=== PATIENT | male | born 1945 | race Caucasian/White ===

== ENCOUNTER 2024-12-24 09:14 | Inpatient (IN) | payer OTHER, SELFPAY ==
[2024-12-24] VITALS (15 sets, daily range): BP systolic 108–149; BP diastolic 46–85; BMI 28.0
--- NOTE | 2024-12-24 09:05 | PTCARENOTE ---
Patient arrived by ambulance from [facility], without any complaints of chest pain or sob. Placed on telemetry. Oriented to the room and plan of care, NPO, call norman in reach. Awaiting admission orders.
--- NOTE | 2024-12-24 09:26 | CON.CAR ---
Addendum entered and electronically signed by Pravin Proctor MD 12/24/24 12:44:
I saw and examined the patient.
The CAR CLEANER or PA's note was reviewed and I agree with the note.
Comment: General: Well developed, well nourished in NAD.
Neck: Supple, no JVD, HJR, carotids +2 B/L, no bruits bilaterally.
Heart: Non displaced PMI, RRR, no murmurs, No S3, S4, no rubs.
Lungs: Clear to auscultation bilaterally, no wheeze, rhonchi, rubs bilaterally,
normal expiratory phase.
Extremities: No clubbing, cyanosis or edema bilaterally.
Neuro: Grossly nonfocal, awake, alert and oriented x3.
Ivan has a history of coronary disease status post stent of RCA in 2005 in the setting of an [place], cardiomyopathy ejection fraction of 30%, hypertension, A-fib, hyperlipidemia, chronic Eliquis, PMR, temporal arteritis, left bundle branch block. He
was admitted with chest pain to [facility] and has been transferred to [facility] for catheterization. He denies chest pain or short of breath at the present time.
Will plan on catheterization with Dr. Lara. Remainder treatment will depend on the results of catheterization. Eventually resume Eliquis.
Original Note:
Consultation
Consultation Request
Date/Time Consultation Requested: 12/24/2024
Date/Time Consultation Performed: 12/24/2024
Requesting Provider: Dr. Melo
Performing Provider: Dr. Proctor
Reason for Consultation: Transfer from [facility] for acute HF and elevated troponin
Medical History
-
History of Present Illness:
Patient went to [facility] ER on 12/21/2024 with chest pain and was admitted with NSTEMI and is now transferred to [facility] for cardiac cath today. Patient follows with Dr. Jacobo of [facility] and was last seen in their office 02/09/2024. Patient has
history of CAD with IWMI and RCA PCI in 2005 that was performed here at [facility]. [facility] and previously had a mechanical design engineer facilities who was helping to manage PMR and temporal arteritis. He was later diagnosed with macular
degeneration and was getting injections and when his insurance was no longer excepted at [facility] he briefly had health care through the [facility] system. It sounds like he was seen at [facility] 04/2024 for a TIA and echo showed EF down to 30%
which was a new reduction compared to echo from 2017 when EF was 50%. Patient then went to [facility] ER on Tuesday morning with chest pain and troponin was initially elevated at 153 and patient was admitted with suspected NSTEMI. Patient asked
to be transferred to [facility] instead of [facility] in [place] and so patient arrived at our hospital this morning with plans for cardiac cath. Patient denies any chest pain. I was able to obtain records from his primary
computer network specialist and also from [facility] admission, his EF was down to 15 to 20% by their echo on Tuesday. Patient was started on Plavix and his aspirin was continued. His outpatient dose of Toprol-XL was increased to 25 mg twice daily. His
outpatient dose of lisinopril 2.5 mg daily was continued. It looks like he was also started on Imdur ER 30 mg daily and Jardiance 10 mg daily. His outpatient dose of Eliquis was placed on hold in anticipation of a cardiac cath.
PMH:
CAD s/p Taxus UDAY to the RCA in the setting of IWMI 2005
CM, possibly ischemic, EF 30% by echo 04/2024
HTN
Hyperlipidemia
Paroxysmal A-fib
Chronic Eliquis OAC
PMR
h/o Temporal arteritis
Chronic LBBB
Past Medical History
Past Medical History: Other (In HPI)
Past Surgical History: Cardiac (RCA PCI in 2005)
Social History
Tobacco: Smoker
Alcohol: Occasional
Drug: None
Personal:
Family History
Family History: CAD (No FH of CAD)
Allergies / Home Medications
Allergy/AdvReac Type Severity Reaction Status Date / Time
NKA - No Known Allergies Allergy Uncoded 08/11/07 09:57
Review of Systems
-
History Source: Patient
All other systems: Negative unless noted
Physical Exam
Vital Signs
BP 142/80, HR 52, pulse ox 98% on room air, weight 212 lbs
Lab Results
CBC 12/24/2024: Hgb 12.9, WBC 6.5, PLT 224,000
CMP 12/24/2024: Sodium 139, potassium 4.4, BUN 19, creatinine 0.7, magnesium 2.0, AST 80, ALT 53, alk phos 36, troponin 11.7
Impression / Plan
-
PCP Dr. Matias Garsia
Cardiology: Dr. Ivan Jacobo
Neurology: [facility]
Rheumatology: [facility]
Also [facility]
Impression:
Transferred to [facility] for cardiac cath with worsened EF and elevated troponin on 12/24/2024
Admitted to [facility] for chest pain, elevated troponin and acute HF 12/21/2024
NSTEMI initial troponin T at [facility] was 153 on 12/21/2024
CAD s/p Taxus UDAY to the RCA in the setting of IWMI 2005
CM, possibly ischemic, EF 30% by echo 04/2024 and 15% by echo 12/21/2024
HTN
Hyperlipidemia
Paroxysmal A-fib
Chronic Eliquis OAC
PMR
h/o Temporal arteritis
Chronic LBBB
Echo 01/26/2017: EF 50%, LBBB, normal RV size and function
Echo 04/2024: No report available, but apparently EF 30%
Echo 12/21/2024: EF 15 to 20%, severe global hypokinesis, normal RV size and function
Plan:
-Patient went to [facility] ER on 12/21/2024 with chest pain and was admitted with NSTEMI and is now transferred to [facility] for cardiac cath today. Patient follows with Dr. Jacobo of [facility] and was last seen in their office 02/09/2024. Patient has
history of CAD with IWMI and RCA PCI in 2005 that was performed here at [facility]. [facility] and previously had a mechanical design engineer facilities who was helping to manage PMR and temporal arteritis. He was later diagnosed with macular
degeneration and was getting injections and when his insurance was no longer excepted at [facility] he briefly had health care through the [facility] system. It sounds like he was seen at [facility] 04/2024 for a TIA and echo showed EF down to 30%
which was a new reduction compared to echo from 2017 when EF was 50%. Patient then went to [facility] ER on Tuesday morning with chest pain and troponin was initially elevated at 153 and patient was admitted with suspected NSTEMI. Patient asked
to be transferred to [facility] instead of [facility] in [place] and so patient arrived at our hospital this morning with plans for cardiac cath. Patient denies any chest pain. I was able to obtain records from his primary computer network specialist and also from
[facility] admission, his EF was down to 15 to 20% by their echo on Tuesday. Patient was started on Plavix and his aspirin was continued. His outpatient dose of Toprol-XL was increased to 25 mg twice daily. His outpatient dose of lisinopril
2.5 mg daily was continued. It looks like he was also started on Imdur ER 30 mg daily and Jardiance 10 mg daily. His outpatient dose of Eliquis was placed on hold in anticipation of a cardiac cath.
-ECG performed at [facility] was reviewed by me and looks like SR with LBBB
-Patient was initially managed for NSTEMI at [facility] and is now transferred to [facility] for cardiac cath. Troponin is trending down on repeat labs performed at our hospital today. No chest pain.
-Eliquis has been on hold in anticipation of cath
-Patient was started on aspirin and Plavix at [facility]
-Reviewed with patient, daughter and son-in-law in the room possible outcomes of cardiac cath including no changes, need for PCI or need for evaluation for CABG.
-LDL 63 on my review of labs from [facility] on 12/21/2024 and they had already increase his outpatient dose of atorvastatin to 80 mg daily
-Outpatient dose of Toprol-XL was increased to 25 mg BID at [facility]
-Outpatient dose of lisinopril 2.5 mg daily was continued
-New to Imdur ER 30 mg daily from [facility]
-No evidence of acute HF and there is no indication the patient was actively being diuresed prior to transfer. I see no orders for diuretics.
-GDMT as noted above plus Jardiance 10 mg daily which will be changed to Farxiga 10 mg daily for formulary changes while in [facility] and can be changed back to Jardiance upon discharge
-Patient was diagnosed with paroxysmal A-fib in the setting of TIA treated at [facility] 04/2024 and Eliquis 5 mg BID should be restarted following cath
--- NOTE | 2024-12-24 09:49 | HPS.HSE ---
Family Physician
-
Family Physician: Matias Garsia
Chief Complaint
-
Chest pain
History of Present Illness
Patient is 79 years old male with history of hypertension, hyperlipidemia, paroxysmal A-fib, pulmonology rheumatica, temporal arteritis, CHF, chronic LBBB, CAD, presented to [facility] with chest pain and found to have elevated troponin
concerning for NSTEMI. Patient requested to be transferred to our hospital and he is currently in IVU for possible cardiac catheterization for further evaluation. Patient currently denies any chest pain or shortness of breath at rest. On review
of records his EF was noted to be down to around 15 to 20% from higher levels prior to cardiac evaluation and he was noted to have elevated troponin with a peak at 153. We repeated troponin here at this time and it is 11. His outpatient Eliquis
has been on hold. Cardiology evaluation ongoing for further ischemic cardiac testing. He was referred to hospitalist for further evaluation.
Medical History
Past Medical History
Past Medical History: Reports Other (CAD s/p Taxus UDAY to the RCA in the setting of IWMI 2006 CM, possibly ischemic, EF 30% by echo 04/2024 HTN Hyperlipidemia Paroxysmal A-fib Chronic Eliquis OAC PMR h/o Temporal arteritis Chronic LBBB, probable BPH)
Past Surgical History: Reports Other (PCI stents in the past)
Social History
Tobacco: Smoker
Alcohol: Occasional
Drug: None
Family History
Family History: CAD
Allergies / Home Medications
Allergies reflects when Allergies were last updated in [facility].
Home Medications with original date entered in [facility]
Allergy/Medication List:
Allergies
Allergy/AdvReac Type Severity Reaction Status Date / Time
NKA - No Known Allergies Allergy Uncoded 08/11/07 09:57
Home Medications
apixaban 5 mg tablet (Eliquis) 5 mg PO BID 12/24/24
aspirin 81 mg tablet,delayed release (Ecotrin Low Strength) 81 mg PO DAILY 12/24/24
atorvastatin 40 mg tablet 40 mg PO HS 12/24/24
brimonidine 0.2 % eye drops 1 drp BOTH EYES DAILY 12/24/24
latanoprost 0.005 % eye drops 1 drp BOTH EYES HS 12/24/24
lisinopril 2.5 mg tablet 2.5 mg PO DAILY 12/24/24
metoprolol succinate 25 mg tablet,extended release 24 hr 25 mg PO DAILY 12/24/24
tamsulosin 0.4 mg capsule 0.4 mg PO HS 12/24/24
Review of Systems
-
A 12 point ROS was completed and negative except as noted: Yes
Physical Exam
Vital Signs
Blood pressure 124/71, heart rate 68, respiratory rate 18, temperature 97.9 farads, O2 sat 95% on room air
Physical exam:
General: Acutely ill
HEENT: Normocephalic, Atraumatic and Moist Mucous Membranes
Respiratory: Clear to Auscultation; Negative Wheezes, Rales or Rhonchi
Cardiac: Regular Rhythm and S1/S2
GI: Soft, Nontender and Nondistended
Musculoskeletal: No Clubbing, No Cyanosis and No Edema
Neuro: Awake, Alert and Oriented, no neurological deficit
Psych: Calm
Physical Exam
General: Other
Data Reviewed
-
Lab Data: Labs Reviewed by me
Old Records: Reviewed
Impression/Plan
-
IMPRESSION:
Patient is 79 years old with multiple comorbidities transferred to the hospital from [facility] for further cardiac ischemic evaluation.
PLAN:
NSTEMI:
Continue anti-ischemic regimen with antiplatelets, beta-blockers, nitrates, and statins.
Cardiology consulted
Continue cardiac monitoring
Cardiac enzymes trended
Plan for cardiac catheterization today
Chronic HFrEF:
Appears euvolemic on exam
In terms of GDMT he is on beta-shruthi, JESSIE inhibitor, and SGLT-2 inhibitors
Might consider rest of GDMT later down the road
Monitor volume status Daily weights and ins and outs
Paroxysmal A-fib:
On rate control, metoprolol succinate 25 mg twice a day
On anticoagulation, Eliquis 5 mg twice a day- currently on hold due to upcoming procedure
Continue cardiac monitoring
CAD:
History of stent in RCA in 2005
TIA, presumably embolic:
Continue statin and resume anticoagulation
Hypertension:
Continue antihypertensive
Hyperlipidemia:
Continue statin
History of temporal arteritis and PMR:
Patient tells me he has been taper off completely of steroids as outpatient
BPH:
Continue Flomax
Macular degeneration:
Continue eyedrop
DVT prophylaxis:
SCDs
CODE STATUS:
Full code
Time spent 75 minutes
[2024-12-24 10:48] LABS: Hematocrit 39.4 % (39.0-52.0); Hemoglobin 12.9 g/dL (13.0-18.0); Mean Corp Hgb Conc. 32.7 g/dL (33.0-37.0); Mean Corpuscular Volume 82.8 fL (80.0-94.0); Platelet Count 224 10^3/uL (130-400); Red Cell Dist. Width 14.3 % (11.5-14.5)
[2024-12-24 11:29] LABS: ALT (SGPT) 53 U/L (0-50); AST (SGOT) 80 U/L (17-59); Albumin 4.3 g/dl (3.5-5.0); Alkaline Phosphatase 36 U/L (38-126); Blood Urea Nitrogen 19 mg/dl (9-20); Calcium 9.2 mg/dl (8.4-10.2); Carbon Dioxide 27 mmol/L (22-30); Chloride 108 mmol/L (98-107); Estimated Creatinine Clearance 100 ml/min; Glucose 95 mg/dl (70-99); Magnesium 2.0 mg/dl (1.6-2.3); Potassium 4.4 mmol/L (3.5-5.1); Sodium 139 mmol/L (135-145); Total Protein 6.4 g/dl (6.3-8.2); eGFR > 60.00
[2024-12-24 11:38] LABS: Troponin I 11.700 ng/ml
--- NOTE | 2024-12-24 14:22 | CM ---
Chart reviewed. Patient waiting to go for a heart cath. Patient is independent of ADLS, lives alone in a 2 [address], 1 ALEJANDRA, 0 DME. Plan is for the patient to return home. CM to follow
[2024-12-24] MEDS: LOW STRENGTH ASPIRIN 81 MG PO (15:17)
--- NOTE | 2024-12-24 15:19 | PTCARENOTE ---
Patient remains pain free, given a baby asa and taken to the laboratory veterinarian. His daughter is waiting in his room.
[2024-12-24 16:01] LABS: ACT-LR - POC 208 Seconds (116-155)
--- NOTE | 2024-12-24 16:47 | ITS.CL.ANGIO ---
Geotechnical Intern - Angioplasty
Angioplasty
Procedure Report:
LEFT HEART CATHETERIZATION
Date of Procedure: April 25, 2024
Procedures performed:
1: Coronary angiography
2: Left ventricular hemodynamic assessment
3: Percutaneous coronary invention of the right coronary artery with placement of a 4.0 x 26 mm [place] drug-eluting stent
Primary Care Provider: Dr. Elvia Valenzuela
Primary Acid Tank Cleaner: Dr. Ivan Jacobo
INDICATION: The patient is a 79-year-old man with a past medical history significant for coronary artery disease status post inferior ID treated with RCA stenting in 2005, recent multiple small foci throughout the bilateral cerebral hemispheres by
MRI in February 2024 felt to be highly suspicious for embolic strokes and was started on Eliquis despite no clear evidence of atrial fibrillation but in the context of newly recognized depressed ejection fraction of 25 to 30% around that time,
history of giant cell arteritis, hypertension, and hyperlipidemia. He presented to [facility] after developing chest tightness and symptoms last evening into Tuesday morning which were reminiscent of his index presentation with an
inferior ID in 2005. Troponins were low-level positive and he was admitted to [facility]. Repeat echo showed severe LV systolic dysfunction in the setting of a wide left bundle branch block. He has been chest pain-free since Tuesday. He
is referred for cardiac catheterization.
ACCESS: The patient was prepped and draped in usual sterile fashion. A 6 Occitan sheath was placed in the right radial artery using the Seldinger over the wire technique.
HEMODYNAMIC FINDINGS (mmHg):
LV(s/d,EDP): 130/18, 24
Ao(s/d,m): 130/68, 91
ANGIOGRAPHIC FINDINGS:
Single-plane Left Ventriculography in CHANCE Projection: Not done.
Coronary Angiography:
Dominance: Right
Left Main: Normal
Left Anterior Descending: The left anterior descending artery is a medium caliber vessel that gives rise to a large high bifurcating diagonal branch. The LAD itself has moderate diffuse luminal irregularities with at least moderate calcification
throughout the midportion. There is a 40 to 50% calcified stenosis at the first septal bushel girl. The medial branch has moderate diffuse small vessel disease which actually appears less severe than it did in 2006. The more lateral branch is
widely patent. All vessels have ANDREW-3 flow.
Left Circumflex: The left circumflex is a large nondominant system that gives rise to 1 major obtuse marginal branch. The mid RCA has a smooth 50% mid stenosis.
Right Coronary: The right coronary artery is a large-caliber dominant vessel that has a previously placed long mid RCA stent. Just prior to the stent there is a smooth 30% stenosis. There is a hazy thrombotic 80% stenosis in the proximal portion
of the stented segment. The distal portion of the stent is widely patent with minimal in-stent restenosis. At the distal stent edge there is a smooth 30% stenosis. The distal vessel gives rise to a medium caliber posterior descending artery and
smaller posterior left ventricular branch. There is mild bifurcation disease with normal flow in the distal vessels.
Percutaneous Coronary Intervention (PCI): In light of the above angiographic findings, I elected to perform a PCI of culprit thrombotic RCA lesion described above. The patient was pretreated with aspirin and Plavix. In light of the thrombus burden
a Integrilin double bolus was given per protocol. A 6 Occitan JR4 guiding catheter was used to engage the right coronary artery. A short Hi-Torque floppy wire was easily advanced across the lesion and predilation was performed with a 3.5 x 15 mm
balloon. Next a 4.0 x 26 mm Vinh was deployed at 16 asher. A 4.0 x 15 mm noncompliant balloon was used to post dilate the stented segment at 16 degrees distally and 18 degrees proximally.
FINAL RESULT: Less than 10% in-stent residual stenosis with outstanding angiographic result ANDREW-3 flow in all vessels.
Fluoroscopy Time (min): 9.7
Radiation Dose (mGy): 649
DAP (Gy.cm2): 41
Closure device: None. A TR band was applied for hemostasis at the right wrist.
Complications: None.
ASSESSMENT:
1: Successful PCI of the right coronary artery with placement of a drug-eluting stent in the setting of very late stent thrombosis. This was clearly an ACS however I doubt this fully explains his LV systolic dysfunction which at this point is now
nearly a year old and associated with a wide LBBB on ECG. 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
largely asymptomatic from a heart failure standpoint.
CONCLUSIONS and RECOMMENDATIONS:
1: Routine post non-STEMI and post drug-eluting stent medical therapy. Will use triple therapy with aspirin 81 mg daily, clopidogrel 75 mg daily, and Eliquis 5 mg p.o. twice daily for a week and then continue Eliquis/Plavix indefinitely. The
indication for DOAC is not clear documented atrial fibrillation but rather low ejection fraction and multiple thromboembolic cryptogenic strokes. Discussed at length with Dr. Jacobo his primary investigation lieutenant.
2: Medical therapy for severe LV systolic dysfunction. Would consider early referral for DESOLDERER plus minus ICD if ejection fraction stays low given his cardiomyopathy with wide left bundle branch block on EKG.
3: Close clinical follow-up with Dr. Jacobo.
Hiral Lara M.D.
[2024-12-24] MEDS: NSS 1000 IV (17:49)
--- NOTE | 2024-12-24 18:13 | PTCARENOTE ---
Patient returned from the slab puller at 1645 after [facility] via right radial artery. Radial band in place right wrist which is dry and intact with a palpable radial pulse. Reinforced post cath restrictions, monitoring VS and EKG done. Dr. Lara in to
speak with the patient and his daughter. Patient denies any pain or discomfort. Eating dinner now, call norman in reach.
[2024-12-24] MEDS: ALPHAGAN 0.2% EYE DROPS 1 DROP BOTH EYES (19:45)
[2024-12-24] MEDS: TOPROL XL 25 MG PO (19:46)
[2024-12-24] MEDS: FLOMAX 0.4 MG PO (22:33)
[2024-12-24] MEDS: LIPITOR 80 MG PO (22:33)
[2024-12-24] MEDS: XALATAN OPHTHALMIC SOLUTION 1 DROP BOTH EYES (22:33)
[2024-12-25] VITALS (7 sets, daily range): BP systolic 102–130; BP diastolic 58–76; O2SAT 96–97; BMI 28.1
[2024-12-25] MEDS: MELATONIN 5 MG PO (01:17)
--- NOTE | 2024-12-25 01:30 | PTCARENOTE ---
Pt. has no complaints chest pain discomfort, NSR on the monitor with first degree HB and frequent PVC/PAC's & BBB. Right radial band removed this shift without difficulty, no bleeding or hematoma, radial pulse normal. Medicated with melatonin for
sleep per pt.'s request.
[2024-12-25 04:54] LABS: Hematocrit 38.3 % (39.0-52.0); Hemoglobin 12.6 g/dL (13.0-18.0); Mean Corp Hgb Conc. 32.9 g/dL (33.0-37.0); Mean Corpuscular Volume 82.7 fL (80.0-94.0); Platelet Count 204 10^3/uL (130-400); Red Cell Dist. Width 14.2 % (11.5-14.5)
[2024-12-25 05:21] LABS: Blood Urea Nitrogen 15 mg/dl (9-20); Calcium 8.9 mg/dl (8.4-10.2); Carbon Dioxide 25 mmol/L (22-30); Chloride 110 mmol/L (98-107); Estimated Creatinine Clearance 117 ml/min; Glucose 96 mg/dl (70-99); Potassium 4.3 mmol/L (3.5-5.1); Sodium 139 mmol/L (135-145); eGFR > 60.00
[2024-12-25] MEDS: COMPAZINE 5 MG IV (06:00)
[2024-12-25 06:12] LABS: Hepatitis C Antibody Negative (Negative)
[2024-12-25 08:16] LABS: ACT-LR - POC > 397 Seconds (116-155)
[2024-12-25] MEDS: ALPHAGAN 0.2% EYE DROPS 1 DROP BOTH EYES (09:05)
[2024-12-25] MEDS: ASPIR LOW (ENTERIC COATED) 81 MG PO (09:05)
[2024-12-25] MEDS: ELIQUIS 5 MG PO (09:06)
[2024-12-25] MEDS: PLAVIX 75 MG PO (09:06)
[2024-12-25] MEDS: TOPROL XL 25 MG PO (09:06)
[2024-12-25] MEDS: IMDUR (EXTENDED RELEASE) 30 MG PO (09:09)
[2024-12-25] MEDS: ZESTRIL 2.5 MG PO (09:09)
[2024-12-25] MEDS: FLUSH (NSS) 1 FLUSH IV (09:10)
[2024-12-25] MEDS: FARXIGA 10 MG PO (09:10)
--- NOTE | 2024-12-25 10:16 | PTCARENOTE ---
Patient complained of feeling sob to Dr. Proctor. Patient's pulse ox 97% on RA at rest. Ambulated down the grady with continuous pulse ox, pulse ox 96% on RA. No longer nauseated and able to tolerate breakfast. Dressing right wrist is dry and intact
with palpable pulse, no signs of hematoma.
--- NOTE | 2024-12-25 11:47 | W.PN.CARDCBS ---
Addendum entered and electronically signed by Pravin Proctor MD 12/25/24 12:08:
I saw and examined the patient.
The DIRECTOR OF CORPORATE STRATEGY or PA's note was reviewed and I agree with the note.
Comment: General: Well developed, well nourished in NAD.
Neck: Supple, no JVD, HJR, carotids +2 B/L, no bruits bilaterally.
Heart: Non displaced PMI, RRR, no murmurs, No S3, S4, no rubs.
Lungs: Clear to auscultation bilaterally, no wheeze, rhonchi, rubs bilaterally,
normal expiratory phase.
Extremities: No clubbing, cyanosis or edema bilaterally.
Neuro: Grossly nonfocal, awake, alert and oriented x3.
He denies chest pain. He had complaints of shortness of breath but was ambulated with nursing with normal pulse ox. Stable cardiology status for discharge. Arrange follow-up with [facility].
Original Note:
Today's Communication / Plan
-
Status post RCA PCI
Continue triple therapy with aspirin, Plavix, Eliquis for 1 week then stop aspirin and continue Plavix, Eliquis
Continue Toprol at increased dose, lisinopril, Farxiga, Imdur
Continue statin at increased dose of 80 mg nightly
cardiac rehab
OP follow up with [facility]
ok for DC
Impression / Plan
-
PCP Dr. Matias Garsia
Cardiology: Dr. Ivan Jacobo
Neurology: [facility]
Rheumatology: [facility]
Impression:
Transferred to [facility] for cardiac cath with worsened EF and elevated troponin on 12/24/2024
Admitted to [facility] for chest pain, elevated troponin and acute HF 12/21/2024
NSTEMI initial troponin T at [facility] was 153 on 12/21/2024
CAD s/p Taxus UDAY to the RCA in the setting of IWMI 2005
CM, possibly ischemic, EF 30% by echo 04/2024 and 15% by echo 12/21/2024
HTN
Hyperlipidemia
Paroxysmal A-fib
Chronic Eliquis OAC
PMR
h/o Temporal arteritis
Chronic LBBB
Echo 01/26/2017: EF 50%, LBBB, normal RV size and function
Echo 04/2024: No report available, but apparently EF 30%
Echo 12/21/2024: EF 15 to 20%, severe global hypokinesis, normal RV size and function
Plan:
-Patient went to [facility] ER on 12/21/2024 with chest pain and was admitted with NSTEMI. transferred to [facility] for cardiac cath 12/24.
-s/p RCA PCI 12/24/24
-feeling well overnight. no CP
-tele overnight reviewed, SR with LBBB and frequent PVCs/bigeminy at times. asymptomatic. K/mag stable. toprol increased this admission to 25mg BID
-he has known CM, suspected mixed. continue toprol, lisinopril. cheo started this admission, CM to assess cost to patient
-continue asa, plavix, eliquis for 1 week then stop asa and continue plavix, eliquis
-R wrist site c/d/i
-LDL 63 from [facility] on 12/21/2024. outpatient dose of atorvastatin was increased this admission to 80 mg daily
-New to Imdur ER 30 mg daily from [facility]
-cardiac rehab
-patient eager for DC today
-will arrange follow up with [facility]. will need OP echo reassessment of EF to determine need for ICD.
PREADMIT DATA:
Patient follows with Dr. Jacobo of [facility] and was last seen in their office 02/09/2024. Patient has history of CAD with IWMI and RCA PCI in 2005 that was performed here at [facility]. [facility] and previously had a marine engine driver who
was helping to manage PMR and temporal arteritis. He was later diagnosed with macular degeneration and was getting injections and when his insurance was no longer excepted at [facility] he briefly had health care through the [facility]
system. It sounds like he was seen at [facility] 04/2024 for a TIA and echo showed EF down to 30% which was a new reduction compared to echo from 2017 when EF was 50%. Patient then went to [facility] ER on Tuesday morning with chest pain and troponin
was initially elevated at 153 and patient was admitted with suspected NSTEMI. Patient asked to be transferred to [facility] instead of [facility] in [place] and so patient arrived at our hospital this morning with plans for cardiac cath. Patient
denies any chest pain. I was able to obtain records from his primary head miller and also from [facility] admission, his EF was down to 15 to 20% by their echo on Tuesday. Patient was started on Plavix and his aspirin was continued. His
outpatient dose of Toprol-XL was increased to 25 mg twice daily. His outpatient dose of lisinopril 2.5 mg daily was continued. It looks like he was also started on Imdur ER 30 mg daily and Jardiance 10 mg daily. His outpatient dose of Eliquis was
placed on hold in anticipation of a cardiac cath.
Progress Note - Counselor Manager
Subjective
Date of Service: December 25, 2024
No issues overnight. Eager for discharge
Objective
Labs:
12/25/24 04:39
12/25/24 04:39
Labs
Hgb 12.6 g/dL (13.0-18.0) L 12/25/24 04:39
Hct 38.3 % (39.0-52.0) L 12/25/24 04:39
Plt Count 204 10^3/uL (130-400) 12/25/24 04:39
Sodium 139 mmol/L (135-145) 12/25/24 04:39
Potassium 4.3 mmol/L (3.5-5.1) 12/25/24 04:39
BUN 15 mg/dl (9-20) 12/25/24 04:39
Creatinine 0.6 mg/dL (0.7-1.3) L 12/25/24 04:39
Glucose 96 mg/dl (70-99) 12/25/24 04:39
Troponins
12/24/24
10:20
Troponin I 11.700 H*
Vital Signs and I&O:
Vital Signs
Temp Pulse Resp BP Pulse Ox
97.8 F 64 15 130/64 97
12/25/24 06:54 12/25/24 09:06 12/25/24 06:54 12/25/24 09:06 12/25/24 06:55
Vital Signs
Temp Pulse Resp BP Pulse Ox
97.8 F 64 15 130/64 97
12/25/24 06:54 12/25/24 09:06 12/25/24 06:54 12/25/24 09:06 12/25/24 06:55
Intake & Output
12/23/24 12/24/24 12/25/24 12/26/24
07:59 07:59 07:59 07:59
Intake Total 960 / 960 240 / 240
Output Total 600 / 600
Balance 360 / 360 240 / 240
Physical Exam
Physical Exam
GEN: No distress, awake, alert, oriented x3
HEENT: supple, anicteric, mmm, eomi
LUNGS: CTA B/L, no wheezes
CV: Reg, S1/S2, no murmur
ABD: soft, BS+, NT/ND
EXT: No cyanosis, clubbing, edema
NEURO: Gross non-focal
SKIN: Warm, pink, dry. No rash. R wrist site c/d/i
--- NOTE | 2024-12-25 11:51 | CM ---
Pricing on Farxiga 10mg daily for 30 days is $0. Patient has met his OOP cost.
--- NOTE | 2024-12-25 12:12 | W.PN.HOSP.TC ---
Today's Communication/Plan
-
Discharge planning
Assessment / Plan
Assessment / Plan
Physical exam:
General: Well Developed, Well Nourished and No Apparent Distress
HEENT: Normocephalic, Atraumatic and Moist Mucous Membranes
Respiratory: Clear to Auscultation; Negative Wheezes, Rales or Rhonchi
Cardiac: Regular Rhythm and S1/S2
GI: Soft, Nontender and Nondistended
Musculoskeletal: No Clubbing, No Cyanosis and No Edema
Neuro: Awake, Alert and Oriented, no neurological deficits
Psych: Calm
A/P:
NSTEMI:
Continue anti-ischemic regimen with antiplatelets, beta-blockers, nitrates, and statins.
Cardiology consulted
Continue cardiac monitoring
Cardiac enzymes trended
s/p cardiac catheterization yesterday on 12/24 status post stent to RCA
Cardiology cleared him for discharge today
Triple therapy for 1 week and then antiplatelet and anticoagulation
Chronic HFrEF:
Appears euvolemic on exam
In terms of GDMT he is on beta-shruthi, JESSIE inhibitor, and SGLT-2 inhibitors
Might consider rest of GDMT later down the road
Monitor volume status Daily weights and ins and outs
Paroxysmal A-fib:
Interventional cardiology raised concerns that anticoagulation was for low EF rather than A-fib-->will defer to cardiology.
On rate control, metoprolol succinate 25 mg twice a day
On anticoagulation, Eliquis 5 mg twice a day- currently on hold due to upcoming procedure
Continue cardiac monitoring
CAD:
History of stent in RCA in 2005
TIA, presumably embolic:
Continue statin and resume anticoagulation
Hypertension:
Continue antihypertensive
Hyperlipidemia:
Continue statin
History of temporal arteritis and PMR:
Patient tells me he has been taper off completely of steroids as outpatient
BPH:
Continue Flomax
Macular degeneration:
Continue eyedrop
DVT prophylaxis:
SCDs
CODE STATUS:
Full code
Anticipated Discharge: Today
Subjective/Interval History
-
Date of Service: December 25, 2024
No chest pain or shortness of breath
Objective Data
-
Labs:
Laboratory Results
12/25/24
04:39
WBC 6.0
Hgb 12.6 L
Hct 38.3 L
Plt Count 204
Sodium 139
Potassium 4.3
Chloride 110 H
Carbon Dioxide 25
BUN 15
Creatinine 0.6 L
Glucose 96
Calcium 8.9
Vital Signs:
Vital Signs
Temp Pulse Resp BP Pulse Ox
97.8 F 64 15 130/64 97
12/25/24 06:54 12/25/24 09:06 12/25/24 06:54 12/25/24 09:06 12/25/24 06:55
I&O
12/24/24 12/25/24 12/26/24
06:59 06:59 06:59
Intake Total 960 / 960 240 / 240
Output Total 600 / 600
Balance 360 / 360 240 / 240
--- NOTE | 2024-12-25 12:19 | W.DCSUMMARY ---
Discharge Summary
Discharge Data
Date of Admission: 12/24/24
Date of Discharge: 12/25/24
-
Pending Results: No
Hospital Course
Patient is 79 years old male with history of hypertension, hyperlipidemia, A-fib, CHF, CAD, PMR, temporal arteritis, chronic LBBB, presented to the hospital after transfer from [facility] for cardiac catheterization. Patient initially
presented to [facility] with chest pain and found to have elevated troponin. He also had recent TIA that shows significant increased EF. Patient was transferred to the hospital and he underwent cardiac catheterization and had a stent in his
RCA. Patient has been chest pain-free and relatively asymptomatic. Cardiology adjusted his medications and cleared him for discharge today. Patient improved sooner than anticipated. No other events were noticed. Patient will be discharged in
stable condition today.
Discharge duration: 35 minutes
Discharge Plan
-
Patient Disposition: Home (Routine Discharge)
Discharge Diagnosis/Procedures: Non-ST elevation myocardial infarction status post angioplasty and stent to Right Coronary artery. Chronic systolic congestive heart failure.
Diet: Low Cholesterol and 2 Gram Sodium
Activity: No strenuous activity
Additional Activity: no heavy lifting greater than 10 pounds for 1 week!
Driving Restrictions: No driving for 24 hours
Blood Work: Please PCP to order CBC and BMP in 1 week
Other Services: Cardiac Rehab
Specialty Instructions: Weigh Daily- Call MD for wt gain/loss 3 lbs overnight/5 lbs in 1 week
Stand Alone Forms: DC Instructions- Cath/EP Lab
Referrals:
Matias Garsia MD [Family Provider, Internal Medicine] - in less than 1 week
Ivan Jacobo DO [Affiliate, Cardiology] - 01/23/25 1:15 pm
Referral Note: Please call with questions.
Additional Discharge Medication Instructions: Continue aspirin, plavix, and eliquis through 12/31 then stop aspirin and continue plavix and eliquis!
Prescriptions:
New
isosorbide mononitrate 30 mg Tablet Extended Release 24 Hr
30 mg PO DAILY 30 Days Qty: 30 0RF
clopidogrel 75 mg Tablet
75 mg PO DAILY 30 Days Qty: 30 0RF
Jardiance 10 mg tablet
10 mg PO DAILY Qty: 30 0RF
Continued
latanoprost 0.005 % Drops
1 drp BOTH EYES HS
tamsulosin 0.4 mg Capsule
0.4 mg PO HS
brimonidine 0.2 % Drops
1 drp BOTH EYES BID
lisinopril 2.5 mg Tablet
2.5 mg PO DAILY
Eliquis 5 mg Tablet
5 mg PO BID
aspirin [Ecotrin Low Strength] 81 mg Tablet,Delayed Release (Dr/Ec)
81 mg PO DAILY 7 Days Qty: 7 0RF
Changed
atorvastatin 40 mg Tablet
80 mg PO HS Qty: 30 0RF
metoprolol succinate 25 mg Tablet Extended Release 24 Hr
25 mg PO BID Qty: 60 0RF
Discharge Orders:
Discharge Patient (As Directed); Ordered 12/25/24
Ordered By: Amarjit Melo
Care Plan Goals
Care Plan Goals:
Problem: Readiness for enhanced knowledge related to diagnosis and treatment plan
Goal: Understand your diagnosis and treatment plan needs, including medications if applicable.
Instructions: Know your diagnosis, underlying causes and treatment plan options, including medications if applicable. Consult with your health care team to learn about your diagnosis and treatment plan, including medications if applicable.
Discharge Date and Time
Discharge Date/Time: 12/25/24 12:58
Print Language: ESTONIAN
--- NOTE | 2024-12-25 12:55 | PTCARENOTE ---
Patient cleared for discharge. Reviewed discharge instructions, post cath restrictions, new medications and follow up appointments with the patient and he states his understanding. Patient discharged home with his [id number].
== END 2024-12-25 12:58 | disposition home or self-care (01) | DRG 322 ==
LOC: IVU 09:14
PROVIDERS: Internal Medicine Interventional Cardiology; Physician Assistant Medical; ADMITTING PHYSICIAN Hospitalist; FAMILY PHYSICIAN Internal Medicine; OTHER PHYSICIAN Internal Medicine Cardiovascular Disease
PROC: 4A023N7 Measurement of Cardiac Sampling and Pressure, Left Heart, Percutaneous Approach (ICD-10-PCS; 2024-12-24)
PROC: B2111ZZ Fluoroscopy of Multiple Coronary Arteries using Low Osmolar Contrast (ICD-10-PCS; 2024-12-24)
PROC: B2151ZZ Fluoroscopy of Left Heart using Low Osmolar Contrast (ICD-10-PCS; 2024-12-24)
PROC: 027034Z Dilation of Coronary Artery, One Artery with Drug-eluting Intraluminal Device, Percutaneous Approach (ICD-10-PCS; 2024-12-24)
DX: I21.4 Non-ST elevation (NSTEMI) myocardial infarction (principal); I50.22 Chronic systolic (congestive) heart failure; I42.8 Other cardiomyopathies; I11.0 Hypertensive heart disease with heart failure; E78.5 Hyperlipidemia, unspecified; M31.5 Giant cell arteritis with polymyalgia rheumatica; I48.0 Paroxysmal atrial fibrillation; F17.200 Nicotine dependence, unspecified, uncomplicated; N40.0 Benign prostatic hyperplasia without lower urinary tract symptoms; H35.30 Unspecified macular degeneration; I44.7 Left bundle-branch block, unspecified; I25.10 Atherosclerotic heart disease of native coronary artery without angina pectoris; I25.2 Old myocardial infarction; Z79.01 Long term (current) use of anticoagulants; Z95.5 Presence of coronary angioplasty implant and graft; Z86.73 Personal history of transient ischemic attack (TIA), and cerebral infarction without residual deficits; Z79.82 Long term (current) use of aspirin
CPT/HCPCS: 80048; 80053; 83735; 84484; 85027; 85347; 86803; 87070; 93005; 93458; C1725; C1769; C1874; C1894; C9600; J1327; Q9967